=== PATIENT | female | born 1990 | race Caucasian/White ===

== ENCOUNTER → 2019-05-11 | Outpatient (CLI) | payer OTHER ==
[~2019-05-11] MED LIST: FLONASE 0.05%50 MCG NASAL; ZANTAC 150MG T150 MG PO; ZOLOFT50 MG PO
== END | disposition home or self-care (01) ==
LOC: LITH 06:33
DX: N20.0 Calculus of kidney (principal); F41.9 Anxiety disorder, unspecified; F32.9 Major depressive disorder, single episode, unspecified; K21.9 Gastro-esophageal reflux disease without esophagitis; Z79.899 Other long term (current) drug therapy; Z98.890 Other specified postprocedural states